=== PATIENT | female | born 1955 | race Caucasian/White ===

== ENCOUNTER 2016-07-08 09:20 | Emergency (ER) | payer BC ==
[2016-07-08 10:24] VITALS: BP 149/75
[2016-07-08] MEDS ORDERED: Ketorolac INJ* 60 MG/2 ML VIAL IM ONE (10:35)
[2016-07-08] MEDS ORDERED: Ondansetron TAB* 4 MG PO ONE (10:40)
[2016-07-08] MEDS ORDERED: Ondansetron ODT TAB* 4 MG ONE (10:43)
[2016-07-08] MEDS ORDERED: Ondansetron ODT TAB* 4 MG PO ONE (10:46)
--- NOTE | 2016-07-08 10:46 | UC ---
Shoulder Pain HPI - HPI Summary HPI Summary: terrible left shoulder pain for 2d. Started gradually mid-day 2d ago. The previous day she spent about 9 hours knitting. Didn't bother her then, but next am she noticed shoulder was stiff. Pain progressed as the day went on. By evening it was intolerably painful. Took Motrin, no help. No prior shoulder pain like this. She is a hairdresser. Not a particularly busy week last week. No other injuries. Didn't sleep on it in a strange way. No fever. No palpitations. No cough or URI symptoms. Today the pain is so severe she is nauseated (vomited in Urgent Care). No redness or swelling. - History of Current Complaint Chief Complaint: UCUpperExtremity Stated Complaint: LEFT SHOULDER PAIN Time Seen by Provider: 07/08/16 10:30 Hx Obtained From: Patient Onset/Duration: Gradual Onset, Lasting Days - 2 Timing: Constant Severity Initially: Mild Severity Currently: Severe Character: Sharp, Aching, Stiffness Aggravating Factor(s): Movement Alleviating Factor(s): Rest Associated Signs And Symptoms: Positive: Negative Related History: Dominant Hand Right - Risk Factors Non-Orthopedic Risk Factor: Negative DVT Risk Factors: Negative Septic Arthritis Risk Factor: Negative - Allergies/Home Medications Allergies/Adverse Reactions: Allergies Allergy/AdvReac Type Severity Reaction Status Date / Time No Known Allergies Allergy Verified 07/08/16 10:17 Home Medications: Home Medications Ibuprofen [Advil] 800 mg PO Q8H PRN 07/08/16 [History Confirmed 07/08/16] PMH/Surg Hx/FS Hx/Imm Hx Previously Healthy: Yes Endocrine History Of: Denies: Diabetes Cardiovascular History Of: Denies: Cardiac Disorders Respiratory History Of: Denies: COPD GI/ History Of: Denies: Gastroesophageal Reflux - Surgical History Surgical History: Yes Surgery Procedure, Year, and Place: bunionectomy x2. bilat mastectomy - Family History Known Family History: Positive: None - Social History Occupation: Employed Full-time - hairdresser Lives: With Family Alcohol Use: None Substance Use Type: None Smoking Status (MU): Never Smoked Tobacco Review of Systems Constitutional: Negative Skin: Negative Eyes: Negative ENT: Negative Respiratory: Negative Cardiovascular: Negative Gastrointestinal: Negative Genitourinary: Negative Motor: Negative Neurovascular: Negative Musculoskeletal: Arthralgia, Decreased ROM, Myalgia Neurological: Negative Psychological: Negative All Other Systems Reviewed And Are Negative: Yes Physical Exam Triage Information Reviewed: Yes Appearance: Well-Appearing, Well-Nourished, Pain Distress - nauseated Vital Signs: Initial Vital Signs Temp 99.7 F 07/08/16 10:19 Pulse 87 07/08/16 10:19 Resp 18 07/08/16 10:19 BP 149/75 07/08/16 10:19 Pulse Ox 100 07/08/16 10:19 Vital Signs Reviewed: Yes Eye Exam: Normal Eyes: Positive: Conjunctiva Clear Neck exam: Normal Neck: Positive: Supple Respiratory Exam: Normal Cardiovascular Exam: Normal Musculoskeletal Exam: Other - no marked surface redness or tenderness. Pain on any movement at left shoulder. Deep palpation around shoulder elicits pain everywhere. Neurological Exam: Normal Psychological Exam: Normal Skin Exam: Normal Diagnostics - Laboratory Diagnostic Studies Completed/Ordered: shoulder xray: DJD, no acute injury Shoulder Course/Dx - Differential Dx/Diagnosis Differential Diagnosis/HQI/PQRI: Bursitis, Fracture (Closed), Rotator Cuff Injury, Strain Provider Diagnoses: left shoulder bursitis Discharge - Discharge Plan Condition: Stable Disposition: HOME Prescriptions: Meloxicam [Mobic] 15 mg PO DAILY PRN #30 tab PRN Reason: shoulder pain Tramadol HCl [Ultram] 1 - 2 tab PO Q6HR PRN #30 tab MDD 6 tab PRN Reason: Pain Patient Education Materials: Shoulder Bursitis (ED) Referrals: Froy Quintana MD [Medical Doctor] - Aguila Soto MD [Primary Care Provider] -
--- NOTE | 2016-07-08 11:22 | RAD ---
Indication: LEFT shoulder pain without proceeding injury. Comparison: None. Technique: Internal and external rotation AP and scapular Y views LEFT shoulder Report: Normal acromioclavicular and glenohumeral joint alignment. Minimal subchondral cystic change and sclerosis at the acromioclavicular joint. Negative for fracture. LEFT axillary surgical clips. Unremarkable soft tissue contours. 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
== END 2016-07-08 12:02 | disposition home or self-care (01) ==
LOC: UCCORT 09:20
DX: M75.52 Bursitis of left shoulder (principal); M19.012 Primary osteoarthritis, left shoulder
CPT/HCPCS: 93005; 96372; 99213; A9270-GY; G0463; J1885

== ENCOUNTER 2018-05-15 14:24 | Emergency (ER) | payer BC ==
[2018-05-15 14:47] VITALS: BP 130/75
--- NOTE | 2018-05-17 14:55 | UC ---
Discharge - Sign-Out/Discharge Documenting (check all that apply): Post-Discharge Follow Up All imaging exams completed and their final reports reviewed: No Studies - Discharge Plan Condition: Stable Disposition: LEFT WITHOUT BEING SEEN Referrals: Aguila Soto MD [Primary Care Provider] - - Billing Disposition and Condition Condition: STABLE Disposition: Left Without Being Seen
== END 2018-05-15 15:24 | disposition left against medical advice (07) ==
LOC: UCCORT 14:24
DX: K59.00 Constipation, unspecified (principal); Z53.21 Procedure and treatment not carried out due to patient leaving prior to being seen by health care provider